=== PATIENT | male | born 1975 | race African-American/Black ===

== ENCOUNTER 2017-07-18 21:41 | Emergency (ER) | payer BC, OTHER ==
[~2017-07-18] VITALS: Ht 175.3 cm; Wt 90.7 kg
[2017-07-18 22:00] VITALS: BP 156/109
[2017-07-18] MEDS ORDERED: LIDOCAINE 1% HCL (LOCAL ANESTH.) INJ 20ML MDV ONE (23:00)
[2017-07-18] MEDS ORDERED: TETANUS-DIPTH-ACEL PERTUSSIS 0.5ML SYRG IM ONE (23:15)
[2017-07-18] MEDS ORDERED: BACITRACIN TOP OINT 1 UD PKG TOP ONE (23:15)
== END 2017-07-18 23:49 | disposition home or self-care (01) ==
LOC: ER 21:41
DX: S61.411A Laceration without foreign body of right hand, initial encounter (principal); W22.8XXA Striking against or struck by other objects, initial encounter; Y93.89 Activity, other specified; Y92.89 Other specified places as the place of occurrence of the external cause; Y99.2 Volunteer activity
CPT/HCPCS: 12001; 90471; 90715; 99283; J2001